=== PATIENT | male | born 1930 | race Caucasian/White ===

== ENCOUNTER 2018-03-09 09:35 | Inpatient (IN) ==
[2018-03-09 10:51] LABS: Baso % (Auto) 0.5 % (0.0-2.0); Eos # (Auto) 0.3 th/mm3 (0.0-0.4); Eos % (Auto) 6.3 % (0.0-4.0); Hematocrit 34.8 % (39.0-51.0); Hemoglobin 11.6 gm/dL (13.0-17.0); Lymph # (Auto) 1.1 th/mm3 (1.0-4.8); Lymph % (Auto) 22.2 % (9.0-44.0); Mean Corpuscular HGB Conc 33.4 % (32.0-36.0); Mean Corpuscular Hemoglobin 33.8 pg (27.0-34.0); Mean Corpuscular Volume 101.3 fL (80.0-100.0); Mean Platelet Volume 8.8 fL (7.0-11.0); Mono # (Auto) 0.5 th/mm3 (0.0-0.9); Mono % (Auto) 9.8 % (0.0-8.0); Neut % (Auto) 61.2 % (16.0-70.0); Platelet Count 214 th/mm3 (150-450); Red Blood Count 3.44 mil/mm3 (4.50-5.90); Red Cell Distribution Width 13.7 % (11.6-17.2); White Blood Count 4.9 th/mm3 (4.0-11.0)
[2018-03-09 10:59] LABS: Activated Partial Thrombo Time 24.5 sec (23.4-31.7); Prothrombin Time 10.4 sec (9.8-11.6)
[2018-03-09 11:04] LABS: Calcium 9.4 mg/dL (8.5-10.1); Carbon Dioxide 26.4 meq/L (21.0-32.0); Potassium 4.1 meq/L (3.5-5.1)
[2018-03-09] MEDS ORDERED: Midazolam Inj 5 MG/ML 1 ML Vial ONE (12:05)
--- NOTE | 2018-03-09 12:14 | P.PNCV ---
- Note Subjective/Hospital Course: 87, male seen by Dr Post and Dr García in the office with progressive symptoms of fatique, SOB over the past 6-8 months . Known hx of CAD/ previous PCI stenting . ECHO showed severe , with moderate to severe left ventricular dysfunction ( EF 35-40%) . Cardiac cath demonstrated a patent stent in the RCA with 50% stenosis. STS risk score 5.145%. Recommended for TAVR PMH: , CAD, CKD stage 3, COPD, KAYLEIGH 03/09 pt electively admitted for TAVR Objective: Vital Signs - 24 hr 03/09/18 10:07 03/09/18 10:44 Temperature 97.6 F Pulse Rate 59 L 60 Respiratory Rate 18 Blood Pressure 108/68 Pulse Oximetry 99 Labs: Laboratory Results - last 12 hr 03/09/18 03/09/18 03/09/18 09:58 10:35 10:35 WBC 4.9 RBC 3.44 L Hgb 11.6 L Hct 34.8 L MCV 101.3 H MCH 33.8 MCHC 33.4 RDW 13.7 Plt Count 214 MPV 8.8 Neut % (Auto) 61.2 Lymph % (Auto) 22.2 [place] % (Auto) 9.8 H Eos % (Auto) 6.3 H Baso % (Auto) 0.5 Neut # (Auto) 3.0 Lymph # (Auto) 1.1 [place] # (Auto) 0.5 Eos # (Auto) 0.3 Baso # (Auto) 0.0 WBC Differential . Differential Comment Auto diff final PT 10.4 INR 1.0 APTT 24.5 Sodium Potassium Chloride Carbon Dioxide Anion Gap BUN Creatinine Estimated GFR Random Glucose Calcium MTS Gel Crossmatch See Detail 03/09/18 10:35 WBC RBC Hgb Hct MCV MCH MCHC RDW Plt Count MPV Neut % (Auto) Lymph % (Auto) [place] % (Auto) Eos % (Auto) Baso % (Auto) Neut # (Auto) Lymph # (Auto) [place] # (Auto) Eos # (Auto) Baso # (Auto) WBC Differential Differential Comment PT INR APTT Sodium 141 Potassium 4.1 Chloride 108 H Carbon Dioxide 26.4 Anion Gap 7 BUN 32 H Creatinine 1.18 Estimated GFR 58 L Random Glucose 93 Calcium 9.4 MTS Gel Crossmatch Result Diagrams: 03/09/18 10:35 03/09/18 10:35
[2018-03-09] MEDS ORDERED: ceFAZolin 2 GM Premix Inj 2 GM/50 ML PIGGYBACK IV.SIG SCH (12:30)
[2018-03-09] MEDS ORDERED: Chlorhexidine Gluconate 2% 1 Pack (2 Cloths) TOPICAL SCH (12:30)
[2018-03-09] MEDS ORDERED: Mupirocin 2% Nasal Oint Topical Syringe EACH NARE SCH (12:30)
[2018-03-09] MEDS ORDERED: Aspirin 325 MG Tablet PO SCH (12:30)
--- NOTE | 2018-03-09 12:41 | P.HPCA ---
History of Present Illness Service: Cardiology Primary Care Physician: Ron Call Chief Complaint: Severe aortic valve stenosis History of Present Illness: This is an 87-year-old male with history of coronary artery disease and prior percutaneous coronary intervention to the right coronary artery. Patient also has history of chronic kidney disease, type 2 diabetes, COPD, sacroiliitis, transient ischemic attack, and tortuous aorta. Patient has had symptoms of progressive exertional dyspnea over the last 6 months. Transthoracic echocardiogram revealed severe aortic valve stenosis with reduced ejection fraction of 35-40%. Patient was evaluated by cardiothoracic surgery and felt to be intermediate to high surgical aortic valve replacement risk and therefore referred for consideration of transcatheter aortic valve replacement. - Diagnosis (1) Severe aortic valve stenosis (2) Chronic combined systolic and diastolic CHF (congestive heart failure) Inpatient Certification: I certify that the inpatient services were ordered in accordance with Medicare regulations governing the order. This includes certification that hospital inpatient services are reasonable and necessary and in the case of services not specified as inpatient-only under 42 CFR 419.22(n), that they are appropriately provided as inpatient services in accordance to with the 2-midnight benchmark under 43 CFR 412.3(e) Estimated Total Length of Stay (Days): 2 Plans for Post Hospital Care: Home health Review of Systems All other systems reviewed negative except as stated in HPI [facility] - History History Provided By: Patient - Medical History Medical History: Medical History (Last Updated 03/09/18 @ 11:08 by Rosalie Branham RN) Aortic stenosis CAD (coronary artery disease) CKD (chronic kidney disease) COPD (chronic obstructive pulmonary disease) Pacemaker Sacroiliitis TIA (transient ischemic attack) - Tobacco History Second Hand Smoke Exposure: No Tobacco Use In Past 30 Days: No Smoking Status: Former smoker Tobacco Type: Cigarettes - Alcohol History How Often Do You Have a Drink Containing Alcohol: 2 to 3 times a week - Substance Use History Substance History: No History of Abuse - Immunization History Hx Influenza Vaccine This Season: Yes Medications and Allergies Active Medications: Active Medications Aspirin (Aspirin) 325 mg PO [employer]BENA Stop: 03/12/18 12:19 Chlorhexidine Gluconate (Chlorhexidine 2% Cloth) 3 pack TOPICAL [employer] ABNEA Stop: 03/12/18 12:19 Cefazolin Sodium/Dextrose (Ancef 2 Gm Premix Inj) 2 gm in 50 mls @ 100 mls/hr IV.SIG [employer] ABENA Stop: 03/12/18 12:29 Sodium Chloride (Ns Inj) 1,000 mls @ 125 mls/hr IV.CONT .Q8H [facility] Mupirocin (Bactroban 2% Nasal Oint) 1 applicatio EACH NARE PLANT PULLER [facility] Stop: 03/12/18 12:19 Povidone Iodine (Betadine 5% Antisepsis Kit) 1 applicatio TOPICAL PL[employer] P[employer]ER [facility] Stop: 03/12/18 12:19 Allergies Allergy/AdvReac Type Severity Reaction Status Date / Time No Known Allergies Allergy Mild Uncoded 06/13/07 07:36 Home Medications Medication Instructions Recorded Confirmed Type aspirin [Aspirin Low Dose] 81 mg PO DAILY 03/09/18 03/09/18 History carvedilol [Coreg] 3.125 mg PO BID 03/09/18 03/09/18 History cholecalciferol (vitamin D3) 2,000 unit PO DAILY 03/09/18 03/09/18 History [Vitamin D3] clopidogrel [Plavix] 75 mg PO DAILY 03/09/18 03/09/18 History gemfibrozil 600 mg PO BID 03/09/18 03/09/18 History hydrocodone-acetaminophen 1 tab PO Q4H PRN 03/09/18 03/09/18 History lisinopril 10 mg PO DAILY 03/09/18 03/09/18 History omega-3 fatty acids-fish oil [Fish 500 mg PO DAILY 03/09/18 03/09/18 History Oil] triamterene-hydrochlorothiazid 1 tab PO DAILY 03/09/18 03/09/18 History vitamin M63-ssqvb acid 1 tab PO DAILY 03/09/18 03/09/18 History Exam Vital signs: Vital Signs 03/09/18 10:07 03/09/18 10:44 Temperature 97.6 F Pulse Rate 59 L 60 Respiratory Rate 18 Blood Pressure 108/68 Pulse Oximetry 99 Intake & Output 03/08/18 03/09/18 03/09/18 18:59 06:59 18:59 Weight 95.3 kg Other: Weight On Admission 95.3 kg - Constitutional no acute distress - Routine HEENT Exam Head: Present: normocephalic ENT: Present: mucous membranes moist - Routine Neck Exam Absent: JVD - Routine Respiratory Exam Present: CTA bilaterally - Routine Cardiovascular Exam Present: RRR, murmur - Routine Abdominal Exam Present: soft, normoactive bowel sounds - Routine Extremities Exam Present: pulses intact. Absent: edema - Routine Neurological Exam Present: alert, oriented X3, CN II-XII intact. Absent: sensory deficit, motor deficit Results 03/09/18 10:35 03/09/18 10:35 Coagulation 03/09/18 Range/Units 10:35 PT 10.4 (9.8-11.6) sec APTT 24.5 (23.4-31.7) sec CBC 03/09/18 Range/Units 10:35 WBC 4.9 (4.0-11.0) th/mm3 RBC 3.44 L (4.50-5.90) mil/mm3 Hgb 11.6 L (13.0-17.0) gm/dL Hct 34.8 L (39.0-51.0) % Plt Count 214 (150-450) th/mm3 Neut # (Auto) 3.0 (1.8-7.7) th/mm3 Lymph # (Auto) 1.1 (1.0-4.8) th/mm3 [place] # (Auto) 0.5 (0.0-0.9) th/mm3 Eos # (Auto) 0.3 (0.0-0.4) th/mm3 Baso # (Auto) 0.0 (0.0-0.2) th/mm3 Comprehensive Metabolic Panel 03/09/18 Range/Units 10:35 Sodium 141 (136-145) meq/L Potassium 4.1 (3.5-5.1) meq/L Chloride 108 H (98-107) meq/L Carbon Dioxide 26.4 (21.0-32.0) meq/L BUN 32 H (7-18) mg/dL Creatinine 1.18 (0.60-1.30) mg/dL Calcium 9.4 (8.5-10.1) mg/dL Intake and Output 03/08/18 03/09/18 03/09/18 22:59 06:59 14:59 Other: Weight 95.3 kg Weight On Admission 95.3 kg Patient Weight 03/10/18 06:59 Weight 95.3 kg EKG interpretations - Dysrhythmias Sinus rhythms and dysrhythmias: sinus rhythm - UT, pacemaker, normal Pacemaker: ventricular pacing w/capture (except when refractory) Caprini VTE Risk Assessment Caprini VTE Risk Assessment: Moderate/High Risk (score >= 2) Caprini Risk Assessment Model: Point Value = 1 Point Value = 2 Point Value = 3 Point Value = 5 Age 41-60 Minor surgery BMI > 25 kg/m2 Swollen legs Varicose veins or History of unexplained or recurrent spontaneous Oral contraceptives or hormone replacement Sepsis (< 1 month) Serious lung disease, including pneumonia (< 1 month) Abnormal pulmonary function Acute myocardial infarction Congestive heart failure (< 1 month) History of inflammatory bowel disease Medical patient at bed rest Age 61-74 Arthroscopic surgery Major open surgery (> 45 min) Laparoscopic surgery (> 45 min) Malignancy Confined to bed (> 72 hours) Immobilizing plaster cast Central venous access Age >= 75 History of VTE Family history of VTE Factor V Leiden Prothrombin [id number] Lupus anticoagulant Anticardiolipin antibodies Elevated serum homocysteine Heparin-induced thrombocytopenia Other congenital or acquired thrombophilia Stroke (< 1 month) Elective arthroplasty Hip, pelvis, or leg fracture Acute spinal cord injury (< 1 month) Prophylaxis Regimen: Total Risk Factor Score Risk Level Prophylaxis Regimen 0-1 Low Early ambulation 2 Moderate Order ONE of the following: *Sequential Compression Device (SCD) *Heparin 5000 units SQ BID 3-4 Higher Order ONE of the following medications: *Heparin 5000 units SQ TID *Enoxaparin/Lovenox 40 mg SQ daily (WT < 150 kg, CrCl > 30 mL/min) *Enoxaparin/Lovenox 30 mg SQ daily (WT < 150 kg, CrCl > 10-29 mL/min) *Enoxaparin/Lovenox 30 mg SQ BID (WT < 150 kg, CrCl > 30 mL/min) AND/OR *Sequential Compression Device (SCD) 5 or more Highest Order ONE of the following medications: *Heparin 5000 units SQ TID (Preferred with Epidurals) *Enoxaparin/Lovenox 40 mg SQ daily (WT < 150 kg, CrCl > 30 mL/min) *Enoxaparin/Lovenox 30 mg SQ daily (WT < 150 kg, CrCl > 10-29 mL/min) *Enoxaparin/Lovenox 30 mg SQ BID (WT < 150 kg, CrCl > 30 mL/min) AND *Sequential Compression Device (SCD) Assessment and Plan - Assessment (1) Severe aortic valve stenosis Code(s): I35.0 - Nonrheumatic aortic (valve) stenosis Status: Acute (2) Chronic combined systolic and diastolic CHF (congestive heart failure) Code(s): I50.42 - Chronic combined systolic (congestive) and diastolic ( congestive) heart failure Status: Acute - Plan This is an 87-year-old male with history of coronary disease, chronic kidney disease, and COPD who was found to have severe aortic valve stenosis in the setting of cardiomyopathy. Patient was referred for transcatheter aortic valve replacement. Preoperative assessment: STS score 6% [place] [employer] functional class III Body mass index 28 3/4 frailty Electrocardiogram January 26, 2018 shows normal sinus rhythm with demand ventricular pacing Pulmonary function test from January 26, 2018 shows an FEV1 of 1.8 and mild restrictive lung disease Echocardiogram from January 20, 2018 shows peak Velocity 4.1 mm/s with a mean gradient of 28 mmHg and a calculated aortic valve area 0.54 cm, ejection fraction was 35-40% with trace to mild mitral regurgitation and mild tricuspid regurgitation. Cardiac catheterization January 20, 2018 shows patent left main, proximal left anterior descending, mid and distal left anterior descending stents. Patent left circumflex coronary stent. Moderate mid right coronary artery stenosis Computed tomographic analysis from February 07, 2018 shows shortening and stamina 23.3 mm, long and 731.0 mm, perimeter 85.8 mm, status post Valsalva diameter 33.1 mm, sinotubular junction diameter 20.6 mm, left coronary height 12.9 mm, right coronary head 15.6 mm, angle of right anterior oblique 30 degrees and caudal 7 degrees for implant, right minimal luminal diameter in the iliac system is 8.4 mm and the left is 12.7 mm Risks, benefits, and alternatives were discussed with the patient patient understood and consented to the procedure. Patient is considered intermediate risk for surgical aortic valve replacement and evaluated by 2 cardiothoracic surgeons and felt to be a better candidate for transcatheter aortic valve approach. We will plan to deploy a 34 mm Medtronic absolute R prosthetic aortic valve via left common femoral arterial approach. H&P: Quality - VTE Deep Vein Thrombosis/Pulmonary Embolism Present on Admission: No
[2018-03-09] MEDS: Sod Chloride 0.9% Inj 1,000 ML IV.CONT SCH ×2 (12:55→20:40)
--- NOTE | 2018-03-09 13:00 | P.PCN ---
Date of procedure: 03/09/18 Procedure: Procedure: Arterial Line Placement Right radial arterial line with ultrasound guidance Diagnosis: Severe aortic stenosis Indications: Need for beat to beat hemodynamic monitoring Consent: Obtained from the patient Description of the Procedure: The right wrist was prepped and draped sterilely. 1% lidocaine was used for local anesthesia. The vascular anatomy of the right wrist was normal. Under direct real-time ultrasound guidance, the radial artery was located and a needle was advanced into the artery. A 20 gauge , 12 cm catheter was advanced into the artery using a modified Seldinger technique. The catheter was sutured to the skin and a sterile dressing was applied. The catheter was connected to a pressure transducer and an arterial waveform was noted. There were no immediate complications noted. There was minimal EBL. I personally performed the procedure.
--- NOTE | 2018-03-09 13:01 | P.PCN ---
Date of procedure: 03/09/18 Procedure: Central Line Procedure Note Right IJ 6 [place] introducer sheath Diagnosis: Severe aortic stenosis Indications: Need for central pressure monitoring Consent: Obtained from the patient Anesthesia: Versed 3 mg IV, 1% lidocaine locally Description of the Procedure: The patient was placed in the supine, mild- Trendelenburg position. The area was prepped and draped sterilely. A 19g needle was inserted under negative pressure aspiration and dark venous blood was obtained. A guidewire was inserted easily without resistance. A small incision was made using a #11 blade. Using a modified Seldinger technique, the dilator and 6 [place] catheter were advanced over the guidewire without resistance. All ports were aspirated and flushed, and had brisk blood return. The line was secured at the skin using 2-0 silk interrupted sutures. Suture was used instead of a non-suture StatLock device due to the size and configuration of the sheath. A Biopatch and Transparent sterile dressing were applied. There were no immediate complications noted. There was minimal EBL. The patient tolerated the procedure well. Ultrasound Guidance: Ultrasound guidance was used to identify the right internal jugular vein. The vascular anatomy of the right anterior neck was normal. The vessel was cannulated under direct, real-time ultrasound visualization. After placement of the guidewire, confirmation of the guidewire in the lumen of the vessel was made using ultrasound visualization, before dilation of the tract. A Chest x-ray has been ordered. I personally performed the procedure.
--- NOTE | 2018-03-09 13:02 | P.PCN ---
Date of procedure: 03/09/18 Procedure: Transvenous Pacer Procedure Note Diagnosis: Severe aortic stenosis Indications: Need for transvenous pacing for transcatheter aortic valve replacement Consent: Obtained from the patient Anesthesia: Versed 3 mill grams IV Description of the Procedure: The patient was placed in the supine, mild- Trendelenburg position. The area was prepped and draped sterilely. A central introducer sheath was placed (see separate procedure note for details). Through this sheath, the 5 Fr transvenous pacer was inserted sterilely to a depth of 20 cm. The balloon was inflated and advanced in diastole with the pacer connected under real-time electrocardiographic monitoring, until capture was obtained. The balloon was deflated. The pacer was secured in position. There were no immediate complications noted. There was minimal EBL. The patient tolerated the procedure well. Depth at Capture: 38 cm mA at capture: 0.5 mA A Chest x-ray has been ordered. I personally performed the procedure.
--- NOTE | 2018-03-09 13:04 | P.CONCC ---
History of Present Illness Service: Critical care medicine Consult date: 03/09/18 Requesting Physician: Brayan Rai Reason for Consult: perioperative management of medical comorbidities Primary Care Provider: Ron Call Chief Complaint: Severe aortic valve stenosis History of Present Illness: This is an 87-year-old male who presents for elective transcatheter aortic valve replacement for his severe aortic stenosis. I evaluated the patient preoperatively. He has no changes to his recent medical history. He has been appropriately n.p.o. He denies any complaints and a complete review of systems at this time is negative. Review of Systems All other systems reviewed negative except as stated in HPI [facility] - History History Provided By: Patient - Medical History Medical History: Medical History (Last Updated 03/09/18 @ 11:08 by Rosalie Branham RN) Aortic stenosis CAD (coronary artery disease) CKD (chronic kidney disease) COPD (chronic obstructive pulmonary disease) Pacemaker Sacroiliitis TIA (transient ischemic attack) - Tobacco History Second Hand Smoke Exposure: No Tobacco Use In Past 30 Days: No Smoking Status: Former smoker Tobacco Type: Cigarettes - Alcohol History How Often Do You Have a Drink Containing Alcohol: 2 to 3 times a week - Substance Use History Substance History: No History of Abuse - Immunization History Hx Influenza Vaccine This Season: Yes Medications and Allergies Active Medications: Active Medications Albuterol (Duoneb Neb (Prn)) 1 ampul NEB Q2HR NEB PRN PRN Reason: WHEEZING Aspirin (Aspirin) 325 mg PO [facility]RILL SHARPENER [facility] Stop: 03/12/18 12:19 Carvedilol (Coreg) 3.125 mg PO BID [facility] Chlorhexidine Gluconate (Chlorhexidine 2% Cloth) 3 pack TOPICAL DRILL SHARPENER [facility] Stop: 03/12/18 12:19 Gemfibrozil (Lopid) 600 mg PO BID [facility] Cefazolin Sodium/Dextrose (Ancef 2 Gm Premix Inj) 2 gm in 50 mls @ 100 mls/hr IV.SIG DRILL SHARPENER [facility] Stop: 03/12/18 12:29 Sodium Chloride (Ns Inj) 1,000 mls @ 125 mls/hr IV.CONT .Q8H [facility] Last Admin: 03/09/18 12:55 Dose: 125 mls/hr Lisinopril (Prinivil) 10 mg PO DAILY [facility] Mupirocin (Bactroban 2% Nasal Oint) 1 applicatio EACH NARE DRILL SHARPENER [facility] Stop: 03/12/18 12:19 Non-Formulary Medication (Cholecalciferol (Vitamin D3) [Vitamin D3]) 2,000 unit PO DAILY [facility] Non-Formulary Medication ([place]-3 Fatty Acids-Fish Oil [Fish Oil]) 500 mg PO DAILY [facility] Non-Formulary Medication (Vitamin W12-Osfox Acid [Vitamin R90-Emxdr Acid]) 1 tab PO DAILY [facility] Povidone Iodine (Betadine 5% Antisepsis Kit) 1 applicatio TOPICAL DRILL SHARPENER [facility] Stop: 03/12/18 12:19 Triamterene/HCTZ (Maxzide 37.5 Mg-25 Mg) 1 tab PO DAILY [facility] Allergies Allergy/AdvReac Type Severity Reaction Status Date / Time No Known Allergies Allergy Mild Uncoded 06/13/07 07:36 Home Medications Medication Instructions Recorded Confirmed Type aspirin [Aspirin Low Dose] 81 mg PO DAILY 03/09/18 03/09/18 History carvedilol [Coreg] 3.125 mg PO BID 03/09/18 03/09/18 History cholecalciferol (vitamin D3) 2,000 unit PO DAILY 03/09/18 03/09/18 History [Vitamin D3] clopidogrel [Plavix] 75 mg PO DAILY 03/09/18 03/09/18 History gemfibrozil 600 mg PO BID 03/09/18 03/09/18 History hydrocodone-acetaminophen 1 tab PO Q4H PRN 03/09/18 03/09/18 History lisinopril 10 mg PO DAILY 03/09/18 03/09/18 History omega-3 fatty acids-fish oil [Fish 500 mg PO DAILY 03/09/18 03/09/18 History Oil] triamterene-hydrochlorothiazid 1 tab PO DAILY 03/09/18 03/09/18 History vitamin J15-upjfm acid 1 tab PO DAILY 03/09/18 03/09/18 History Physical Exam Vital signs: Vital Signs 03/09/18 10:07 03/09/18 10:44 Temperature 36.4 C Pulse Rate 59 L 60 Respiratory Rate 18 Blood Pressure 108/68 Pulse Oximetry 99 Intake & Output 03/08/18 03/09/18 03/09/18 18:59 06:59 18:59 Weight 95.3 kg Other: Weight On Admission 95.3 kg Narrative: immediate post-op physical exam: GENERAL: Frail elderly male, lying in bed, arousing from anesthesia HEENT: Normocephalic. Atraumatic. Pupils equal, round, reactive, conjugate. Mucous membranes are moist NECK: Trachea is midline. There is no JVD. right IJ introducer sheath in place , site is clean and dry, dressing intact. CHEST: unlabored. equal chest rise. nc o2. CARDIOVASCULAR: normal rate, regular rhythm. ABDOMEN: Soft, nontender, nondistended. No guarding. MUSCULOSKELETAL: Pulses 2+. No peripheral edema. bilateral groin sites are clean and dry, no evidence of hematoma, dressing intact. distal LE pulses are Dopplerable. NEUROLOGICAL: RASS -2. Arousing from anesthesia. follows commands. moves all extremities. no focal deficits. Assessment and Plan - Assessment and Plan Plan: Assessment: 87-year-old male postop day 0 status post transcatheter aortic valve replacement. Admit to ICU for frequent monitoring. S/p TAVR today via groin access - anticoagulation per unhairer - mivf - close uop monitoring - frequent neurovascular checks - frequent groin checks - OOB after flat time Hypertension - goal sbp < 180 - add back antihypertensives as needed Congestive Heart Failure secondary to valvulopathy - mivf today - may need diuresis beginning after POD 1 Hyperlipidemia - restart home statin COPD - nebs - wean o2 for goal spo2 > 90% - oob - pt - aggressive pulmonary toilet CKD, unknown stage - mivf - watch uop closely - am Cr advance diet after flat time SCDs AM CBC, BMP Critical care medicine will continue to follow while patient remains in the CVICU.
[2018-03-09] MEDS ORDERED: Heparin 10,000 UNITS/10 ML Vial (for IV use) ONE (13:13)
[2018-03-09] MEDS ORDERED: Protamine Sulfate Inj 50 MG/5 ML Vial ONE (13:13)
[2018-03-09] MEDS ORDERED: Midazolam Inj 5 MG/ML 1 ML Vial IV.PUSH ONE (13:30)
--- NOTE | 2018-03-09 14:01 | XR ---
EXAM DATE: 03/09/2018 1:36 PM EST AGE/SEX: 87 years / Male INDICATIONS: Central Line placement. CLINICAL DATA: This is the patient's initial encounter. Patient reports that signs and symptoms have been present for 1 day and indicates a pain score of 0/10. MEDICAL/SURGICAL HISTORY: . Cardiovascular disease. Hypertension. . Cholecystectomy. Pac[place]ake r COMPARISON: [facility] [place]ST TRANSAORTIC VALVE [place]P, 01/31/2018. . FINDINGS: Portable AP view of the chest demonstrates a normal-sized cardiac silhouette with left-sided cardiac pacing device in place. Right IJ central line has been placed in the distal tibia is likely near the cavoatrial junction. No pneumothorax is identified. There is a stable pleural thickening at the right costophrenic angle. Multiple calcified granulomas are present bilaterally along with interstitial op acities. CONCLUSION: 1. Right IJ central line distal tip likely near the cavoatrial junction. No pneumothorax is identifi ed. 2. Chronic changes include interstitial lung disease and right pleural thickening. Electronically signed by: Rolando Chu MD 03/09/2018 2:00 PM EST
[2018-03-09] MEDS ORDERED: Lidocaine PF 1% Inj 30 ML Vial ONE (14:22)
--- NOTE | 2018-03-09 14:59 | P.OP ---
Date of procedure: 03/09/18 Anesthesia: MAC Surgeon: Yonatan Post MD Operation and Findings: PREOPERATIVE DIAGNOSIS: 1. Severe Symptomatic Aortic stenosis. 2. CHF 3. Mild aortic Insufficiency 4. Chronic Kidney Disease POSTOPERATIVE DIAGNOSIS: Same OPERATION PERFORMED: 1. Transcatheter Aortic Valve Replacement (TAVR) with a Medtronic 29 mm Evolut Pro Tissue Valve. 2. Aortogram. 3. Percutaneous left femoral Vein Access and Bilateral Common Femoral Artery Access 4. Perclose (x2) closure of right Common Femoral artery. 5. Vascade closure of left Common Femoral Artery and Vein. 6. Fluoroscopy SURGEON: Yonatan Post MD CO-SURGEON: Brayan Rai MD INJECTION MOLDING TECHNICIAN SURGEON: None WOOL HAT FORMING MACHINE TENDER: YAAKOV Garcia MD ANESTHESIA: MAC PROCEDURE: The risks, benefits, complications, treatment options, and expected outcomes were discussed with the patient. The possibilities of reaction to medication, pulmonary aspiration, perforation of viscus, bleeding, recurrent infection, the need for additional procedures, failure to diagnose a condition, and creating a complication requiring transfusion or operation were discussed with the patient. The patient concurred with the proposed plan, giving informed consent. The site of surgery properly noted/marked. The patient was taken to the hybrid operating room and the procedure verified as Transcatheter Aortic Valve Replacement. A Time Out was held and the above information confirmed. Standard monitoring lines and Venegas catheter were placed. General anesthesia was induced. The patient was prepped and draped in a sterile fashion. Initially, the left femoral arterial and venous access was acquired using a Seldinger percutaneous technique. The details of this procedure were dictated under separate note by cardiology. Once a pigtail was positioned in the aortic annulus and a temporary transvenous pacemaker wire was placed in the right ventricular apex and tested, the right femoral artery was accessed using a needle followed by a guidewire under fluoroscopic guidance. The patient was heparinized and two Perclose devices deployed at a 45 degree angle for later closure. Serial dilators were used to dilate the right femoral artery to 16 Yoruba caliber. The Medtronic sheath was then inserted into the external iliac artery up to the distal abdominal aorta. Arch aortography was performed to define the implant view. A 34 mm Medtronic Evolut R transcatheter aortic valve was then positioned in the annulus and deployed with the patient being rapidly paced. Following deployment, the valve apparatus was withdrawn and arch aortography and MACY were performed to assess the valve. The valve had no perivalvular leak. Gradients were then measured and the sheath was removed with securing the Perclose sutures for hemostasis. Protamine was administered. The left arterial and Venous access sites were closed using the Vascade device. Sterile dressings were placed. At the end of the operation, all sponge, instruments, and needle counts were correct. The patient was transferred to the CVICU in stable condition. Findings: No PVL Implants: 34 Evolut R Medtronic Valve Complications: None Disposition: CVICU in stable condition
--- NOTE | 2018-03-09 15:11 | P.OP ---
- Preoperative Diagnosis (1) Severe aortic valve stenosis (2) Chronic combined systolic and diastolic CHF (congestive heart failure) - Postoperative Diagnosis (1) Bioprosthetic aortic valve replacement during current hospitalization Date of procedure: 03/09/18 Procedure: rock crusher operator: Brayan Rai MD Primary Surgeon: Radhika García MD Procedures performed: 1. Fluoroscopy with interpretation 2. Left heart catheterization 3. Ascending aortography 4. Temporary transvenous pacemaker placement 5. Transesophageal echocardiogram 6. Transcatheter aortic valve replacement with Medtronic Evolut R 34 mm bioprosthetic valve Methods: Risks, benefits, and alternatives were discussed with the patient. Patient understood and consented to the procedure. Patient was brought into the operating room and placed on the operating table. Bilateral groins and chest were prepped and draped. Under fluoroscopic guidance the left common femoral artery was cannulated and a 5 Nigerien 11 cm sheath was placed without difficulty. Left femoral vein was accessed and a 5 Nigerien 11 cm sheath was placed without difficulty. Right common femoral artery was cannulated under fluoroscopic and angiographic guidance through using a micropuncture sheath. Angiography confirmed appropriate placement. An 8 Nigerien sheath was placed without difficulty. 2 Perclose devices were deployed in a pre-close manner. The 14 sheath was then advanced up over the wire through the iliac system without difficulty into the descending abdominal aorta. Temporary transvenous pacemaker placement: A 5 Nigerien balloontipped temporary transvenous pacemaker was advanced under fluoroscopic guidance to the right internal jugular sheath to the right ventricular apex. Appropriate pacing and capture was confirmed and utilized during the procedure for rapid ventricular pacing. Transesophageal echocardiogram: Please see detailed separate report Ascending aortography: Ascending aortography was performed using an 5 Nigerien angled pigtail catheter advanced to the left common femoral arterial sheath to the level of the descending aorta and its the right coronary cusp. Ascending aortography was performed which showed 3 leaflets and parallax view. The ascending aorta was not significantly dilated. Left heart catheterization: A 5 Nigerien AL-1 catheter was advanced through the right common femoral sheath to the level of the descending aorta a 0.035 inch Amplatz straight tip Super Stiff wire was then advanced across the aortic valve with some difficulty. The AL-1 catheter was advanced into the left ventricle. A 260 cm 0.035 inch standard J-wire was then advanced to the left ventricular apex and the AL-1 catheter removed. A 5 Nigerien angled pigtail catheter was then advanced over the J-wire into the left ventricular apex and the J-wire removed. A 0.035 inch 260 cm Medtronic Confida wire was then advanced to the left ventricular apex through the pigtail catheter, and the pigtail catheter removed. Transcatheter aortic valve replacement: A 34 mm Medtronic Evolut R valve was advanced through the right common femoral sheath to the level of the descending aorta. The device was then advanced up and over the arch to the level of the ascending aorta and across the aortic valve. Appropriate positioning was confirmed with a sending aortography and fluoroscopy. Under ventricular pacing at rate of 120 bpm, the transcatheter aortic valve was slowly deployed. Immediate post deployment transesophageal echocardiogram revealed appropriate positioning. There was no perivalvular leak or pericardial effusion. Patient tolerated the procedure with good hemodynamic stability. The delivery sheath was then removed. The right common femoral arterial sheath was removed and 2 Perclose devices deployed with good hemostasis. The left common femoral artery and venous sheaths were also removed and 2 Vascade closure devices were deployed with good hemostasis. Post valve deployment intraoperative transesophageal echocardiogram findings: 1. Post aortic valve area was 2.0 cm 2. Post implant mean aortic valve gradient was 3 mmHg 3. Post implant peak velocity was 1.24 m/seconds 4. Aortic valve insufficiency showed no perivalvular leak Conclusions: 1. Severe qawalangin aortic valve stenosis 2. Successful transcatheter aortic valve replacement with a 34 mm Medtronic Evolut R bioprosthetic valve Plan: We will monitor the patient closely for any immediate postprocedural complications. We will obtain a limited transthoracic echocardiogram. We will initiate antiplatelet therapy with aspirin and Plavix. Patient be transferred to the cardiovascular intensive care unit for further monitoring Surgeon: Brayan Rai MD
[2018-03-09] MEDS ORDERED: Iohexol Inj 350 MG/ML 100 ML Bottle (for RAD Diag) IVCONTRAST ONE (15:13)
[2018-03-09] MEDS ORDERED: fentaNYL Citrate Inj 100 MCG/2 ML Ampul ONE (15:24)
[2018-03-09] MEDS ORDERED: Iohexol 350 MG/ML 100 ML Vial (for Cath Lab) IVCONTRAST ONE (15:26)
[2018-03-09] MEDS ORDERED: Iohexol 350 MG/ML 50 ML Vial (for Cath Lab) IVCONTRAST ONE (15:26)
--- NOTE | 2018-03-09 16:45 | ECG ---
Date Performed: 03/09/2018 Time Performed: 10:45:50 PTAGE: 87 years EKG: A-V sequential pacemaker Pacemaker rhythm - no further analysis Abnormal ECG Compared to PREVIOUS TRACING , paced rhythm now present DOCTOR: Blaire Boyle Interpretating Date/Time 03/09/2018 16:45:25
[2018-03-09] MEDS: Gemfibrozil 600 MG Tablet PO SCH (21:38)
--- NOTE | 2018-03-10 06:48 | P.PNCC ---
Subjective Subjective Remarks/Hospital Course: Hospital Course: This is an 87-year-old male who presents for elective transcatheter aortic valve replacement for his severe aortic stenosis. I evaluated the patient preoperatively. He has no changes to his recent medical history. He has been appropriately n.p.o. He denies any complaints and a complete review of systems at this time is negative. Subjective: 03/10: doing well. complained of one episode of "big toe burning" in the middle of the night that has completely resolved. no neuro changes in the LE. no weakness, numbness. no edema. denies other complaints. Objective Vital Signs / I&O: Vital Signs 03/09/18 10:07 03/09/18 10:44 03/09/18 13:09 Temperature 36.4 C 36.7 C Pulse Rate 59 L 60 60 Respiratory Rate 18 16 Blood Pressure 108/68 113/63 Pulse Oximetry 99 03/09/18 15:16 03/09/18 15:19 03/09/18 15:20 Temperature 36.4 C Pulse Rate 60 60 Respiratory Rate 16 Blood Pressure 105/56 L Pulse Oximetry 99 99 99 03/09/18 15:49 03/09/18 15:54 03/09/18 17:04 Temperature 36.7 C Pulse Rate 59 L 60 Respiratory Rate 14 Blood Pressure 133/50 L Pulse Oximetry 99 95 03/09/18 18:43 03/09/18 20:00 03/09/18 20:20 Temperature 36.8 C Pulse Rate 59 L Respiratory Rate 20 Blood Pressure 91/46 L Pulse Oximetry 95 94 L 95 03/10/18 00:00 Temperature 36.6 C Pulse Rate 59 L Respiratory Rate 21 Blood Pressure Pulse Oximetry 97 Intake & Output 03/09/18 03/09/18 03/10/18 06:59 18:59 06:59 Intake Total 1290 / 1290 Output Total 750 / 750 Balance 540 / 540 Weight 95.3 kg Intake: IV 50 / 50 Ancef 2 GM Premix Inj 2 gm In 50 / 50 50 ml @ 100 mls/hr IV.SIG MACHINE OPERATOR [facility] Rx#:[id number] Oral 240 / 240 Anesthesia Amount 1000 / 1000 Output: Urine 550 / 550 Estimated Blood Loss 200 / 200 Other: Date of Last Bowel Movement 03/09/18 03/10/18 Weight On Admission 95.3 kg Result Diagrams: 03/09/18 10:35 03/09/18 10:35 Objective Remarks: GENERAL: Frail elderly male, lying in bed, awake, alert. HEENT: Normocephalic. Atraumatic. Pupils equal, round, reactive, conjugate. Mucous membranes are moist NECK: Trachea is midline. There is no JVD. right IJ introducer sheath in place , site is clean and dry, dressing intact. CHEST: unlabored. equal chest rise. nc o2. CARDIOVASCULAR: normal rate, regular rhythm. ABDOMEN: Soft, nontender, nondistended. No guarding. MUSCULOSKELETAL: Pulses 2+. No peripheral edema. bilateral groin sites are clean and dry, no evidence of hematoma, dressing intact. distal LE pulses are Dopplerable. NEUROLOGICAL: RASS 0. awake and alert. follows commands. moves all extremities. no focal deficits. Assessment and Plan - Assessment and Plan Plan: Assessment: 87-year-old male postop day 1 status post transcatheter aortic valve replacement. stable for transfer out of ICU. cleared from my standpoint to d/c home today if he ambulates and tolerates PO. S/p TAVR 03/09 via groin access - anticoagulation per cruise director - d/c mivf. 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 Hyperlipidemia - home statin COPD - nebs - wean o2 for goal spo2 > 90% - oob - pt - aggressive pulmonary toilet CKD, unknown stage - watch uop closely advance diet as tolerated SCDs AM CBC, BMP Critical care medicine will sign off.
[2018-03-10] MEDS: Sod Chloride 0.9% Inj 1,000 ML IV.CONT SCH (06:58)
[2018-03-10 08:13] VITALS: PULSE 69
[2018-03-10 08:15] VITALS: BP 105/50; RESP 18; TEMP 98; O2SAT 97
--- NOTE | 2018-03-10 08:48 | P.DS ---
Date of admission: 03/09/18 09:35 Primary care physician: Ron Call Brief History from admission: This is an 87-year-old male with history of coronary artery disease and prior percutaneous coronary intervention to the right coronary artery. Patient also has history of chronic kidney disease, type 2 diabetes, COPD, sacroiliitis, transient ischemic attack, and tortuous aorta. Patient has had symptoms of progressive exertional dyspnea over the last 6 months. Transthoracic echocardiogram revealed severe aortic valve stenosis with reduced ejection fraction of 35-40%. Patient was evaluated by cardiothoracic surgery and felt to be intermediate to high surgical aortic valve replacement risk and therefore referred for consideration of transcatheter aortic valve replacement. Patient update on day of discharge: Doing well today. No chest pain, shortness of breath. Denies any issues with groin access sites. Awaiting limited echo today and then plans for out of bed. DS: Summary Hospital Course: 87-year-old male who underwent elective TAVR 03/09/18 was unremarkable perioperative course. Patient has permanent pacemaker already in place. Plan is for discharge in stable condition later today versus tomorrow into the care of his family. - Time Spent with Patient Total time spent providing and/or coordinating discharge services: Greater than 30 minutes - Quality: VTE Deep Vein Thrombosis/Pulmonary Embolism Present on Admission: No Exam Vital signs: Vital Signs 03/09/18 10:07 03/09/18 10:44 03/09/18 13:09 Temperature 97.6 F 98.1 F Pulse Rate 59 L 60 60 Respiratory Rate 18 16 Blood Pressure 108/68 113/63 Pulse Oximetry 99 03/09/18 15:16 03/09/18 15:19 03/09/18 15:20 Temperature 97.6 F Pulse Rate 60 60 Respiratory Rate 16 Blood Pressure 105/56 L Pulse Oximetry 99 99 99 03/09/18 15:49 03/09/18 15:54 03/09/18 17:04 Temperature 98.0 F Pulse Rate 59 L 60 Respiratory Rate 14 Blood Pressure 133/50 L Pulse Oximetry 99 95 03/09/18 18:43 03/09/18 20:00 03/09/18 20:20 Temperature 98.2 F Pulse Rate 59 L Respiratory Rate 20 Blood Pressure 91/46 L Pulse Oximetry 95 94 L 95 03/10/18 00:00 03/10/18 04:00 03/10/18 07:24 Temperature 97.9 F 98.3 F Pulse Rate 59 L 59 L Respiratory Rate 21 22 Blood Pressure 96/50 L Pulse Oximetry 97 97 97 03/10/18 08:12 03/10/18 08:14 Temperature 98 F Pulse Rate 69 69 Respiratory Rate 18 Blood Pressure 105/50 L Pulse Oximetry 97 Intake & Output 03/09/18 03/10/18 03/10/18 18:59 06:59 18:59 Intake Total 1290 / 1290 1720 / 1720 Output Total 750 / 750 650 / 650 Balance 540 / 540 1070 / 1070 Weight 210 lb 1.608 oz 215 lb 2.738 oz Intake: IV 50 / 50 1000 / 1000 NS Inj 1,000 ML @ 125 mls/hr IV 1000 / 1000 .CONT .Q8H [facility] Rx#:[id number] Ancef 2 GM Premix Inj 2 gm In 50 / 50 50 ml @ 100 mls/hr IV.SIG MECHANICAL DEVELOPER [facility] Rx#:[id number] Oral 240 / 240 720 / 720 Anesthesia Amount 1000 / 1000 Output: Urine 550 / 550 650 / 650 Estimated Blood Loss 200 / 200 Other: Date of Last Bowel Movement 03/09/18 03/10/18 03/10/18 # Bowel Movements 1 Weight On Admission 210 lb 1.608 oz Narrative: GENERAL: Well-developed well-nourished. In no acute distress. NECK: No carotid bruits. No JVD. CARDIOVASCULAR: Regular rate and rhythm. No murmur appreciated. RESPIRATORY: No accessory muscle use. Clear to auscultation. Breath sounds equal bilaterally. MUSCULOSKELETAL: No clubbing or cyanosis. No edema. Bilateral groin access sites with no swelling, ecchymosis, minimal tenderness on the right, intact femoral pulses. NEUROLOGICAL: Awake and alert. Normal speech. Results Procedures completed during hospitalization: TAVR 03/09/18 Labs on day of discharge: Labs from last 24 hours 03/09/18 03/09/18 03/09/18 10:35 10:35 10:35 WBC 4.9 RBC 3.44 L Hgb 11.6 L Hct 34.8 L MCV 101.3 H MCH 33.8 MCHC 33.4 RDW 13.7 Plt Count 214 MPV 8.8 Neut % (Auto) 61.2 Lymph % (Auto) 22.2 Bennett % (Auto) 9.8 H Eos % (Auto) 6.3 H Baso % (Auto) 0.5 Neut # (Auto) 3.0 Lymph # (Auto) 1.1 Bennett # (Auto) 0.5 Eos # (Auto) 0.3 Baso # (Auto) 0.0 WBC Differential . Differential Comment Auto diff final PT 10.4 INR 1.0 APTT 24.5 Sodium 141 Potassium 4.1 Chloride 108 H Carbon Dioxide 26.4 Anion Gap 7 BUN 32 H Creatinine 1.18 Estimated GFR 58 L Random Glucose 93 Calcium 9.4 MTS Gel Crossmatch 03/09/18 09:58 WBC RBC Hgb Hct MCV MCH MCHC RDW Plt Count MPV Neut % (Auto) Lymph % (Auto) Bennett % (Auto) Eos % (Auto) Baso % (Auto) Neut # (Auto) Lymph # (Auto) Bennett # (Auto) Eos # (Auto) Baso # (Auto) WBC Differential Differential Comment PT INR APTT Sodium Potassium Chloride Carbon Dioxide Anion Gap BUN Creatinine Estimated GFR Random Glucose Calcium MTS Gel Crossmatch See Detail - Impressions ITS Impressions Chest X-Ray 03/09/18 00:00 CONCLUSION: 1. Right IJ central line distal tip likely near the cavoatrial junction. No pneumothorax is identified. 2. Chronic changes include interstitial lung disease and right pleural thickening. Discharge Plan - Discharge Disposition Patient Disposition: 01 Discharge Home - Discharge Condition Condition: Stable - Discharge Order Discharge Orders: Discharge Order (Routine); Ordered 03/10/18 Ordered By: Mauro Hawthorne - Physicians Team Primary Care Provider: Ron Call Attending Provider: Brayan Ria Other Providers: Radhika García MD - Rxs /Orders / Referrals /Forms Prescriptions: Continue aspirin [Aspirin Low Dose] 81 mg Tablet,Delayed Release (Dr/Ec) 81 mg PO DAILY carvedilol [Coreg] 3.125 mg Tablet 3.125 mg PO BID cholecalciferol (vitamin D3) [Vitamin D3] 2,000 unit Tablet 2,000 unit PO DAILY clopidogrel [Plavix] 75 mg Tablet 75 mg PO DAILY gemfibrozil 600 mg Tablet 600 mg PO BID hydrocodone-acetaminophen 10-325 mg Tablet 1 tab PO Q4H PRN (Reason: Pain) lisinopril 5 mg Tablet 10 mg PO DAILY omega-3 fatty acids-fish oil [Fish Oil] 300-500 mg Capsule 500 mg PO DAILY triamterene-hydrochlorothiazid 37.5-25 mg Tablet 1 tab PO DAILY vitamin Q66-wzsjr acid 500-400 mcg Tablet 1 tab PO DAILY Referrals: Ron Call M.D. [Primary Care Provider] - See Instructions - Discharge Instructions Patient Printed Instructions: Transcatheter Aortic Valve Replacement (DC)
--- NOTE | 2018-03-10 08:49 | ECHRPT ---
Indication: CONCLUSIONS Trileaflet aortic valve. Severe aortic valve stenosis. Mild aortic insufficiency. Status post perioperative transcatheter aortic valve replacement. No paravalvular leak. No residua l stenosis. The left ventricular systolic function is severely reduced with an estimated ejection fraction in th e range of 30-35%. BP: / HR: Rhythm: Technical Quality: FINDINGS LEFT VENTRICLE The left ventricular systolic function is severely reduced with an estimated ejection fraction in th e range of 30-35%. RIGHT VENTRICLE Normal right ventricular size and systolic function. LEFT ATRIUM The left atrial size is normal. RIGHT ATRIUM The right atrial size is normal. ATRIAL SEPTUM Normal atrial septal thickness without atrial level shunting by limited color doppler interrogation. AORTA The aortic root and proximal ascending aorta are normal in size on limited imaging. MITRAL VALVE The mitral valve is not well visualized. AORTIC VALVE Trileaflet aortic valve. Severe aortic valve stenosis. Mild aortic insufficiency. Status post perioperative transcatheter aortic valve replacement. No paravalvular leak. No residua l stenosis. TRICUSPID VALVE Structurally normal tricuspid valve. No tricuspid valve stenosis or regurgitation. PULMONARY VALVE The pulmonary valve is not well visualized. VESSELS The inferior vena cava is normal in size. PERICARDIUM No pericardial effusion. Brayan Rai MD, FACC (Electronically Signed) Final Date:10 March 2018 08:48
[2018-03-10] MEDS ORDERED: Triamterene/HCTZ 37.5 MG/25 MG Tablet PO SCH (09:00)
[2018-03-10] MEDS ORDERED: Vitamin B Complex/Vit C/Folic Tablet PO SCH (09:00)
[2018-03-10] MEDS ORDERED: OMEGA PO SCH (09:00)
[2018-03-10] MEDS ORDERED: Lisinopril 10 MG Tablet PO SCH (09:00)
[2018-03-10] MEDS ORDERED: [UNRECOGNIZED DRUG - OTHER] PO SCH (09:00)
--- NOTE | 2018-03-10 09:11 | P.PNCV ---
- Note Subjective/Hospital Course: 87, male seen by Dr Post and Dr García in the office with progressive symptoms of fatique, SOB over the past 6-8 months . Known hx of CAD/ previous PCI stenting . ECHO showed severe , with moderate to severe left ventricular dysfunction ( EF 35-40%) . Cardiac cath demonstrated a patent stent in the RCA with 50% stenosis. STS risk score 5.145%. Recommended for TAVR PMH: , CAD, CKD stage 3, COPD, [place] pt electively admitted for TAVR Date of procedure: 03/09/18 Anesthesia: MAC Surgeon: Yonatan Post MD Operation and Findings: PREOPERATIVE DIAGNOSIS: 1. Severe Symptomatic Aortic stenosis. 2. CHF 3. Mild aortic Insufficiency 4. Chronic Kidney Disease POSTOPERATIVE DIAGNOSIS: Same OPERATION PERFORMED: 1. Transcatheter Aortic Valve Replacement (TAVR) with a Medtronic 29 mm Evolut Pro Tissue Valve. 2. Aortogram. 3. Percutaneous left femoral Vein Access and Bilateral Common Femoral Artery Access 4. Perclose (x2) closure of right Common Femoral artery. 5. Vascade closure of left Common Femoral Artery and Vein. 6. Fluoroscopy 03/10 pt doing well has permanent pacer L BBB stable from CVT surgery for possible dc later today Objective: Vital Signs - 24 hr 03/09/18 10:07 03/09/18 10:44 03/09/18 13:09 Temperature 97.6 F 98.1 F Pulse Rate 59 L 60 60 Respiratory Rate 18 16 Blood Pressure 108/68 113/63 Pulse Oximetry 99 03/09/18 15:16 03/09/18 15:19 03/09/18 15:20 Temperature 97.6 F Pulse Rate 60 60 Respiratory Rate 16 Blood Pressure 105/56 L Pulse Oximetry 99 99 99 03/09/18 15:49 03/09/18 15:54 03/09/18 17:04 Temperature 98.0 F Pulse Rate 59 L 60 Respiratory Rate 14 Blood Pressure 133/50 L Pulse Oximetry 99 95 03/09/18 18:43 03/09/18 20:00 03/09/18 20:20 Temperature 98.2 F Pulse Rate 59 L Respiratory Rate 20 Blood Pressure 91/46 L Pulse Oximetry 95 94 L 95 03/10/18 00:00 03/10/18 04:00 03/10/18 07:24 Temperature 97.9 F 98.3 F Pulse Rate 59 L 59 L Respiratory Rate 21 22 Blood Pressure 96/50 L Pulse Oximetry 97 97 97 03/10/18 08:12 03/10/18 08:14 Temperature 98 F Pulse Rate 69 69 Respiratory Rate 18 Blood Pressure 105/50 L Pulse Oximetry 97 GENERAL: A&O x 3 SKIN: Warm and dry. dressing to both groin, minimal ecchymosis right groin, right CVC line DC HEAD: Normocephalic. EYES: No scleral icterus. No injection or drainage. NECK: Supple, trachea midline. No JVD or lymphadenopathy. CARDIOVASCULAR: Regular rate and rhythm without murmurs, gallops, or rubs. RESPIRATORY: Breath sounds equal bilaterally. No accessory muscle use. GASTROINTESTINAL: Abdomen soft, non-tender, nondistended. MUSCULOSKELETAL: No cyanosis, or edema. BACK: Nontender without obvious deformity. No CVA tenderness. Labs: Laboratory Results - last 12 hr 03/09/18 09:58 MTS Gel Crossmatch See Detail Result Diagrams: 03/09/18 10:35 03/09/18 10:35 Telemetry: sr - Plan (1) S/P TAVR (transcatheter aortic valve replacement) Plan: S/p TAVR 03/09 via groin access - anticoagulation per river crossing supervisor - - frequent groin checks - OOB Hypertension - goal sbp < 180 - add back antihypertensives as needed Congestive Heart Failure secondary to valvulopathy gentle diuresis. Hyperlipidemia - home statin COPD - nebs - wean o2 for goal spo2 > 90% - aggressive pulmonary toilet CKD, unknown stage - CVT will sign off
[2018-03-10] MEDS: Gemfibrozil 600 MG Tablet PO SCH (09:29)
[2018-03-10 11:53] LABS: Hematocrit 33.5 % (39.0-51.0); Mean Corpuscular HGB Conc 32.7 % (32.0-36.0); Mean Corpuscular Hemoglobin 33.2 pg (27.0-34.0); Mean Corpuscular Volume 101.4 fL (80.0-100.0); Mean Platelet Volume 8.7 fL (7.0-11.0); Platelet Count 179 th/mm3 (150-450); Red Cell Distribution Width 13.7 % (11.6-17.2); White Blood Count 6.1 th/mm3 (4.0-11.0)
[2018-03-10 12:00] LABS: INR 1.1 Ratio; Prothrombin Time 11.1 sec (9.8-11.6)
[2018-03-10 12:05] LABS: Calcium 8.6 mg/dL (8.5-10.1); Potassium 3.9 meq/L (3.5-5.1)
--- NOTE | 2018-03-10 17:32 | ECG ---
Date Performed: 03/09/2018 Time Performed: 15:52:58 PTAGE: 87 years EKG: A-V sequential pacemaker Pacemaker rhythm - no further analysis Abnormal ECG PREVIOUS TRACING :03/09/2018 @10.45 Since the previous tracing, no significant change noted DOCTOR: Marj Magdaleno Interpretating Date/Time 03/10/2018 17:31:20
--- NOTE | 2018-03-12 15:34 | ECHRPT ---
Indication: POST TAVR 12-18 CONCLUSIONS Status post transcatheter aortic valve replacement. No significant aortic valve stenosis or perival vular leak.The pulmonary valve is not well visualized. BP: / HR: Rhythm: Technical Quality: FINDINGS LEFT VENTRICLE Normal left ventricular size and wall thickness. The left ventricular systolic function is normal wi th an estimated ejection fraction in the range of 60-65%. Left ventricular diastolic function parameters a re normal. RIGHT VENTRICLE Normal right ventricular size and systolic function. LEFT ATRIUM The left atrial size is normal. RIGHT ATRIUM The right atrial size is normal. ATRIAL SEPTUM Normal atrial septal thickness without atrial level shunting by limited color doppler interrogation. AORTA The aortic root and proximal ascending aorta are normal in size on limited imaging. MITRAL VALVE Structurally normal mitral valve. No mitral valve stenosis or regurgitation. AORTIC VALVE Status post transcatheter aortic valve replacement. No significant aortic valve stenosis or perival vular leak. TRICUSPID VALVE Structurally normal tricuspid valve. No tricuspid valve stenosis or regurgitation. PULMONARY VALVE The pulmonary valve is not well visualized. VESSELS The inferior vena cava is normal in size. PERICARDIUM No pericardial effusion. Brayan Rai MD, FACC (Electronically Signed) Final Date:12 March 2018 15:33
--- NOTE | 2018-03-12 18:07 | ECG ---
Date Performed: 03/10/2018 Time Performed: 08:37:58 PTAGE: 87 years EKG: A-V sequential pacemaker Lead(s) unsuitable for analysis: I III aVL aVF V4 V5 V6 Pacemaker rhythm - no further analysis Abnormal ECG NO PREVIOUS TRACING DOCTOR: Perla Claudio Interpretating Date/Time 03/12/2018 17:38:57
== END 2018-03-10 13:03 | disposition home or self-care (01) ==
LOC: HSDI 09:35 → HCVI 09:38
PROVIDERS: ADMIT Internal Medicine; ATTEND Internal Medicine
PROC: TAVRHYB (ICD-10-PCS; 2018-03-09 14:30)